=== PATIENT | female | born 1965 | race Caucasian/White ===

== ENCOUNTER 2022-05-01 09:56 | Outpatient (CLI) | payer BC, SELFPAY ==
--- NOTE | ~2022-05-01 | MR_ITS ---
MR breast BI wo con 05/01/2022 11:42 CDT INDICATION: Possible implant rupture. TECHNIQUE: MRI of the breasts perform using standard breast implant protocol without intravenous cont rast including axial T 2 fast spin-echo, 3-D axial vibrant, sagittal T2 with and without silicone sup pression sequences. COMPARISON: No prior studies for comparison. FINDINGS: No discrete breast masses are identified. No significant axillary lymphadenopathy. There ar e both intracapsular and extracapsular implant ruptures with extracapsular silicone identified latera l to the implant as well as anterior to the implant. Intracapsular rupture is indicated by subcapsula r and linguine signs. LEFT BREAST: No discrete masses are identified. No axillary lymphadenopathy. There are both intracaps ular and extracapsular implant ruptures. Intracapsular rupture characterized by subcapsular line sign . Extracapsular accumulation of silicone is identified along the inferior medial margin of the implan t. IMPRESSION: 1: Bilateral breast implant ruptures, both extracapsular and intracapsular. Reviewed, dictated and finalized at location A.
== END 2022-05-01 09:57 | disposition home or self-care (01) ==
PROVIDERS: PCP Nurse Practitioner Family; Visit Provider Obstetrics & Gynecology
DX: T85.43XA Leakage of breast prosthesis and implant, initial encounter (principal)
CPT/HCPCS: 77047

== ENCOUNTER 2024-10-24 13:23 | Emergency (ER) | payer BC, SELFPAY ==
[2024-10-24 13:31] VITALS: BP 112/74; PULSE 75; RESP 16; TEMP 37.1; O2SAT 98
--- NOTE | 2024-10-24 13:40 | ED.URI ---
HPI - URI/Sore Throat General Chief Complaint: Upper Respiratory Infection Stated Complaint: HEADACHE/EARACHE/SINUS PAIN Time Seen by Provider: 10/24/24 13:35 Source: patient Mode of arrival: ambulatory Limitations: no limitations History of Present Illness HPI Narrative: Dora is a 59-year-old female patient presenting to clinic today with complaints of headache, earache, and sinus congestion/pain. Symptoms have been going on for 4 days. Denies any fevers, chills, body aches. Has had recent travel. [place] like this before when she had COVID. Has not taken a COVID test Related Data Home Medications ?Medication ?Instructions ?Recorded ?Confirmed ?Last Taken ?Type alprazolam 0.5 mg tablet (Xanax) 0.5 mg PO HS PRN Anxiety 05/22/19 03/17/22 07/02/19 History cetirizine 10 mg capsule (Zyrtec) 10 mg PO DAILY 05/22/19 03/17/22 07/02/19 History ferrous sulfate 325 mg (65 mg 325 mg PO BID 06/28/19 03/17/22 07/02/19 History iron) tablet,delayed release Allergies Allergy/AdvReac Type Severity Reaction Status Date / Time amoxicillin Allergy Intermediate Hives Verified 10/24/24 13:53 wheat Allergy Gastrointestinal Verified 10/24/24 13:53 Upset Review of Systems Review of Systems: Pertinent positives per HPI. Patient denies any fever, chills, rash, headache, visual changes, dizziness, cough, shortness of breath, chest pain, palpitations, nausea, vomiting, diarrhea, constipation, abdominal pain, or any urinary issues. 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) GERD (gastroesophageal reflux disease) Anxiety Surgical History Surgical History H/O breast implant Family History Family History Father Hypertension Mother Hypertension Sibling Hypertension Other Cerebrovascular accident Depression Heart disease Lung cancer Social History Social History Smoking status: Never smoker Second hand tobacco smoke exposure: No Alcohol intake: current Substance use: never Substance use type: does not use Gender identity (if verbalized by the patient): Female Spiritual care concerns: No Comments At the time of my signature, I reviewed and agree with the nursing past medical, surgical, social, and family history. There is no relevant family history pertinent to the patient complaint. Exam Narrative: General: Well-developed, well nourished, in no apparent distress Head: Normocephalic, atraumatic Eyes: Pupils equally round and reactive to light bilaterally, EOM intact, sclera and conjunctive clear, no discharge, lids normal Ears: TMs intact and congested, ear canals clear, no drainage, grossly hearing normal. Nose: Nares patent, clear nasal discharge, mild inflammation, maxillary and frontal sinus tenderness. Mouth: Oral pharynx without lesions or masses, good dentition, MMM. Postnasal drip Neck: Supple, trachea midline, no enlargement of anterior or posterior cervical nodes, no thyroid masses or goiter palpable. Cardio: Regular rate and rhythm, s1 and s2 normal, no murmur appreciated. Resp: Clear to auscultation bilaterally, no rhonchi, rales, wheezing or rubs Course Course Emergency Course: Portions of this record may have been created with voice recognition software. Level of Care: Express Care Visit Vital Signs Vital signs: Vital Signs Temperature 37.1 C 10/24/24 13:31 Pulse Rate 75 10/24/24 13:31 Respiratory Rate 16 10/24/24 13:31 Blood Pressure 112/74 10/24/24 13:31 Pulse Oximetry 98 10/24/24 13:31 Oxygen Delivery Room Air 10/24/24 13:31 Temperature 37.1 C 10/24/24 13:31 Pulse Rate 75 10/24/24 13:31 Respiratory Rate 16 10/24/24 13:31 Blood Pressure 112/74 10/24/24 13:31 Pulse Oximetry 98 10/24/24 13:31 Oxygen Delivery Room Air 10/24/24 13:31 Vital signs reviewed MDM - URI/Sore Throat MDM Narrative Medical decision making narrative: At the time of visit patient is resting comfortably on the exam table. Patient appears to be nontoxic. Labs: COVID and influenza testing was negative in the clinic today. Plan: I suspect patient has URI. Prescription for prednisone was sent to the pharmacy. Supportive measures were discussed with the patient and they voiced understanding discharge instructions and agrees to treatment plan. Return precautions reviewed Differential Diagnosis Differential diagnosis: Likely upper respiratory infection, otitis media, sinusitis, viral infection, bronchitis, influenza, pharyngitis and other (COVID) Lab Data Labs: Lab Results 10/24/24 Range/Units 13:34 POC Influenza A Ag Negative (Negative) POC Influenza B Ag Negative (Negative) POC SARS CoV-2 Ag Negative (Negative) Discharge Plan Discharge Clinical Impression: Upper respiratory infection Qualifiers: URI type: unspecified URI Qualified Code(s): J06.9 - Acute upper respiratory infection, unspecified Patient Disposition: Home Condition: Stable Instructions: Antibiotic Form, Cold Symptoms (ED) Additional Instructions: COVID and influenza testing was negative. Take prescription medications only as prescribed-prednisone Increase fluids and stay well hydrated Tylenol/motrin for pain/fever Flonase and OTC antihistamines as directed Vicks vapor rub to open sinuses Sinus rinses for congestion Cepacol spray, cough drops, throat lozenges, warm tea with honey/lemon, gargle salt water to soothe throat BRAT diet for diarrhea Clear liquids x 24 hours then advance as tolerated for nausea/vomiting Go to the ED if you develop a worsening in your condition- high fever not controlled by Tylenol or Motrin, dehydration, weakness, lethargy, shortness of breath, or chest pain. Follow up with your PCP in 3-5 days if symptoms persist. Patient Language: Yoruba Prescriptions: New prednisone 20 mg tablet 40 mg PO DAILY 5 Days Qty: 10 0RF No Action ferrous sulfate 325 mg (65 mg iron) Tablet,Delayed Release (Dr/Ec) 325 mg PO BID alprazolam [Xanax] 0.5 mg Tablet 0.5 mg PO HS PRN (Reason: Anxiety) Zyrtec 10 mg Capsule 10 mg PO DAILY Follow-up/Referrals: Anish,MD Josie [Primary Care Provider] - Time of Disposition: 13:52 Quality NIHSS Nursing Documentation ED NIHSS nursing documentation: reviewed/agree
[2024-10-24 13:53] LABS: EDCOVIDSCREEN Negative (Negative); EDINFLUASCREEN Negative (Negative); EDINFLUBSCREEN Negative (Negative)
== END 2024-10-24 13:59 | disposition home or self-care (01) ==
PROVIDERS: Emergency Provider Nurse Practitioner Family; PCP Internal Medicine
DX: J06.9 Acute upper respiratory infection, unspecified (principal); Z20.822 Contact with and (suspected) exposure to COVID-19; K90.0 Celiac disease; K21.9 Gastro-esophageal reflux disease without esophagitis; F41.9 Anxiety disorder, unspecified; Z86.018 Personal history of other benign neoplasm
CPT/HCPCS: 87426; 87804; 99213; G0463